=== PATIENT | female | born 1960 | race Caucasian/White ===

== ENCOUNTER → 2017-01-13 | Outpatient (CLI) | payer OTHER | LOC: EXRD 11:10 | DX: R10.9 Unspecified abdominal pain (principal); G35 Multiple sclerosis; K59.09 Other constipation; M54.5 Low back pain; J43.9 Emphysema, unspecified | CPT/HCPCS: 74022 ==

== ENCOUNTER → 2017-02-11 | Outpatient (CLI) | payer OTHER | LOC: EMI 01-29 09:00 | DX: G35 Multiple sclerosis (principal) | CPT/HCPCS: 70553; A9577; J7050 ==

== ENCOUNTER → 2021-05-14 | Outpatient (CLI) | payer OTHER | LOC: KOH-I 15:24 | DX: R10.9 Unspecified abdominal pain (principal); K59.00 Constipation, unspecified | CPT/HCPCS: 74018 ==

== ENCOUNTER → 2021-05-22 | Outpatient (CLI) | payer OTHER | LOC: EMI 10:10 | DX: G35 Multiple sclerosis (principal) | CPT/HCPCS: 70553; A9577 ==

== ENCOUNTER → 2021-05-23 | Outpatient (CLI) | payer OTHER ==
[~2021-05-23] VITALS: Ht 154.9 cm; Wt 51.7 kg
== END ==
LOC: OPSV 14:00
DX: G35 Multiple sclerosis (principal)
CPT/HCPCS: 96365; J2930; J7070

== ENCOUNTER → 2021-05-24 | Outpatient (CLI) | payer OTHER | LOC: OPSV 14:00 | DX: G35 Multiple sclerosis (principal) | CPT/HCPCS: 96365; J2930; J7070 ==

== ENCOUNTER → 2021-05-25 | Outpatient (CLI) | payer OTHER ==
[~2021-05-25] VITALS: Ht 154.9 cm; Wt 51.7 kg
== END ==
LOC: OPSV 12:57
DX: G35 Multiple sclerosis (principal)
CPT/HCPCS: 96365; J2930; J7070

== ENCOUNTER → 2021-05-28 | Outpatient (CLI) | payer OTHER ==
[~2021-05-28] VITALS: Ht 154.9 cm; Wt 51.7 kg
[2021-05-28 14:50] LABS: HEMOGLOBIN 14.3 gm/dl (12.3-15.3); RED BLOOD COUNT 4.78 M/UL (4.00-5.10); WHITE BLOOD COUNT 5.4 K/UL (4.5-11.0)
[2021-05-28 16:07] LABS: BUN/CREATININE RATIO 24 (0-10)
[2021-05-29 07:13] LABS: FREE THYROXINE INDEX 2.4 (1.2-4.9); HBSAG SCREEN Negative (Negative); HEP A AB, IGM Negative (Negative); HEP B CORE AB, IGM Negative (Negative); HEP C VIRUS AB <0.1 (0.0-0.9); IMMUNOGLOBULIN A, QN, SERUM 233 mg/dL (87-352); IMMUNOGLOBULIN G, QN, SERUM 929 mg/dL (586-1602); IMMUNOGLOBULIN M, QN, SERUM 157 mg/dL (26-217); T3 UPTAKE 28 % (24-39); THYROXINE (T4) 8.5 ug/dL (4.5-12.0)
[2021-05-29 08:13] LABS: HIV SCREEN 4TH GENERATION WRFX Non Reactive (Non Reactive)
[2021-05-29 14:13] LABS: % CD19+ LYMPHS 44.4 % (3.3-25.4); % NK (CD56/16) 2.5 % (1.4-19.4); AB NK (CD56/16) 25 /uL (24-406); ABS.CD19+ LYMPHS 444 /uL (12-645); LYMPHS 18 % (Not Estab.); WBC 5.5 x10E3/uL (3.4-10.8)
== END ==
LOC: OPSV 05-26 14:00
PROVIDERS: Nurse Practitioner Family; Psychiatry & Neurology Neurology
DX: G35 Multiple sclerosis (principal)
CPT/HCPCS: 36415; 80053; 80074; 82784; 84436; 84479; 85025; 86787; 87389; 96365; J2930; J7070

== ENCOUNTER → 2021-05-29 | Outpatient (CLI) | payer OTHER ==
[~2021-05-29] VITALS: Ht 154.9 cm; Wt 51.7 kg
== END ==
LOC: OPSV 13:33
DX: G35 Multiple sclerosis (principal)
CPT/HCPCS: 96365; J2930; J7070

== ENCOUNTER → 2021-06-06 | Outpatient (CLI) | payer OTHER | LOC: EMI 08:54 | DX: G35 Multiple sclerosis (principal) | CPT/HCPCS: 70553; A9577 ==

== ENCOUNTER → 2021-06-29 | Outpatient (CLI) | payer OTHER | LOC: CT 12:29 | DX: K59.00 Constipation, unspecified (principal); C79.9 Secondary malignant neoplasm of unspecified site | CPT/HCPCS: 71260; Q9967 ==

== ENCOUNTER → 2021-07-17 | Day surgery (SDC) | payer OTHER ==
[~2021-07-17] MED LIST: AMITRIPTYLINE H25 MG PO; COLACE100 MG PO; CYCLOBENZAPRINE10 MG PO; GABAPENTIN100 MG PO; KLONOPIN TAB 00.5 MG PO; LIPITOR TAB 2020 MG PO; TRAMADOL HCL50 MG PO
== END | disposition home or self-care (01) ==
LOC: OR 05:19
DX: C79.9 Secondary malignant neoplasm of unspecified site (principal); K59.09 Other constipation; K21.9 Gastro-esophageal reflux disease without esophagitis; M19.90 Unspecified osteoarthritis, unspecified site; F41.9 Anxiety disorder, unspecified; E03.9 Hypothyroidism, unspecified; G89.29 Other chronic pain; E78.5 Hyperlipidemia, unspecified; E87.8 Other disorders of electrolyte and fluid balance, not elsewhere classified; Z79.891 Long term (current) use of opiate analgesic; Z79.899 Other long term (current) drug therapy; Z98.51 Tubal ligation status; Z80.8 Family history of malignant neoplasm of other organs or systems
CPT/HCPCS: J2704; J7030

== ENCOUNTER → 2021-09-03 | Outpatient (CLI) | payer OTHER | LOC: MRI 12:41 | DX: G35 Multiple sclerosis (principal); Z79.899 Other long term (current) drug therapy | CPT/HCPCS: 70553; A9577 ==

== ENCOUNTER → 2021-12-27 | Outpatient (CLI) | payer OTHER | LOC: KOH-I 12-19 09:30 → US 12-19 09:30 → KOH-I 09:05 | DX: K76.89 Other specified diseases of liver (principal) | CPT/HCPCS: 76705 ==

== ENCOUNTER → 2022-03-06 | Outpatient (CLI) | payer OTHER ==
[~2022-03-06] VITALS: Ht 152.4 cm; Wt 54.0 kg
== END ==
LOC: OPSV 10:31
DX: G35 Multiple sclerosis (principal)
CPT/HCPCS: 96365; J2930; J7070

== ENCOUNTER → 2022-03-07 | Outpatient (CLI) | payer OTHER ==
[~2022-03-07] VITALS: Ht 152.4 cm; Wt 54.0 kg
== END ==
LOC: OPSV 07:36
DX: G35 Multiple sclerosis (principal)
CPT/HCPCS: 96365; J2930; J7070

== ENCOUNTER → 2022-03-08 | Outpatient (CLI) | payer OTHER | LOC: OPSV 07:34 | DX: G35 Multiple sclerosis (principal) | CPT/HCPCS: 96365; J2930; J7030 ==

== ENCOUNTER → 2022-04-09 | Outpatient (CLI) | payer OTHER | LOC: EMI 08:43 | DX: G35 Multiple sclerosis (principal) | CPT/HCPCS: 70553; 72156; A9577 ==